=== PATIENT | female | born 1970 | race African-American/Black ===

== ENCOUNTER 2018-11-10 09:27 | Inpatient (IN) | payer OTHER ==
[~2018-11-10] VITALS: Ht 157.5 cm; Wt 106.1 kg
[~2018-11-10 09:27] MED LIST: ADVAIR; ALBUTEROL; AMIT-187; DIOVAN; FLONASE; GABAPENTIN; HCTZ; IBUPROFEN; LAMICTAL; MECLIZINE; METOPROLOL; PLAVIX; RANITIDINE; TOPAMAX
[2018-11-10] MEDS ORDERED: ASPIRIN 81MG TABLET PO ONE (10:00)
[2018-11-10] MEDS ORDERED: NITROGLYCERIN 0.4MG TABLET SL SL PRN (10:00)
[2018-11-10 10:10] LABS: BASOPHILS % 0.5 % (0.0-2.0); EOSINOPHILS % 1.5 % (0.0-5.0); HEMATOCRIT. 37.8 % (36.0-48.0); HEMOGLOBIN. 12.5 g/dL (12.0-16.0); MEAN CORPUSCULAR HEMOGLOBIN 29.9 pg (28.0-32.0); MEAN CORPUSCULAR VOLUME 90.1 fL (81.0-99.0); MEAN PLATELET VOLUME 8.3 fl (7.4-10.4); MONOCYTES % 5.4 % (2.0-8.0); NEUTROPHILS % 68.6 % (40.0-76.0); PLATELET 242 x1000/uL (130-400); RED BLOOD CELL COUNT 4.19 mill/uL (4.2-5.4); RED CELL DISTRIBUTION WIDTH 14.5 % (11.6-14.6)
[2018-11-10 10:16] LABS: CHLORIDE 108 mEq/L (98-107)
[2018-11-10 11:13] LABS: *AMPHETAMINES SCREEN URINE NEGATIVE (NEGATIVE); *BARBITURATES SCREEN URINE NEGATIVE (NEGATIVE); *BENZODIAZEPINES SCREEN URINE NEGATIVE (NEGATIVE); *COCAINE SCREEN URINE NEGATIVE (NEGATIVE)
[2018-11-10 11:14] LABS: METHADONE URINE SCREEN NEGATIVE (NEGATIVE); OPIATES URINE SCREEN NEGATIVE (NEGATIVE); PHENCYCLIDINE URINE SCREEN NEGATIVE (NEGATIVE)
[2018-11-10] MEDS ORDERED: LABETALOL HCL 20MG/4ML CARPUJECT IV ONE ×3 (11:15→12:30)
[2018-11-10 11:28] LABS: CANNABINOID URINE SCREEN PRESUMTIVE POSITIVE (NEGATIVE)
[2018-11-10] MEDS ORDERED: LABETALOL 5MG/ML SYR 20 MG/4 ML SYRINGE IV NR (11:30)
[2018-11-10] MEDS ORDERED: KETOROLAC 15MG/ML VIAL IV ONE (12:30)
[2018-11-10] MEDS ORDERED: LABETALOL 5MG/ML SYR 20 MG/4 ML SYRINGE IV ONE (15:15)
[2018-11-10] MEDS ORDERED: POTASSIUM CHLORIDE 20MEQ TABLET SR PO NR (15:30)
[2018-11-10] MEDS ORDERED: LOSARTAN POTASSIUM 100 MG TABLET PO NR (15:45)
[2018-11-10 16:14] LABS: HDL CHOLESTEROL 55 mg/dL (40-59); LDL CHOLESTEROL 73 mg/dL (5-100)
[2018-11-10] MEDS: CLONIDINE 0.1MG TABLET PO PRN (16:46)
[2018-11-10] MEDS: ACETAMINOPHEN 325MG TABLET PO PRN (16:47)
[2018-11-10] MEDS ORDERED: HYDRALAZINE 20MG/ML VIAL IV NR (19:30)
[2018-11-10] MEDS ORDERED: ZOLPIDEM TARTRATE 5MG TABLET PO PRN (21:00)
[2018-11-10] MEDS ORDERED: METOPROLOL TARTRATE 25MG TABLET PO NR (23:08)
[2018-11-10] MEDS: KETOROLAC 30MG/ML VIAL IV PRN (23:23)
[2018-11-11] VITALS (13 sets, daily range): BP systolic 135–167; BP diastolic 57–116
[2018-11-11] MEDS: AMLODIPINE 5MG TABLET PO SCH ×3 (00:39→21:44)
[2018-11-11] MEDS: ACETAMINOPHEN 325MG TABLET PO PRN ×2 (02:58→10:16)
[2018-11-11] MEDS: CLONIDINE 0.1MG TABLET PO PRN ×2 (04:41→19:01)
[2018-11-11 05:53] LABS: BASOPHILS % 0.5 % (0.0-2.0); EOSINOPHILS % 1.7 % (0.0-5.0); HEMATOCRIT. 38.7 % (36.0-48.0); HEMOGLOBIN. 12.8 g/dL (12.0-16.0); LYMPHOCYTES % 26.8 % (20.0-50.0); MEAN CORPUSCULAR HEMOGLOBIN 29.6 pg (28.0-32.0); MEAN CORPUSCULAR VOLUME 89.6 fL (81.0-99.0); MEAN PLATELET VOLUME 8.7 fl (7.4-10.4); MONOCYTES % 6.5 % (2.0-8.0); NEUTROPHILS % 64.5 % (40.0-76.0); PLATELET 217 x1000/uL (130-400); RED BLOOD CELL COUNT 4.32 mill/uL (4.2-5.4); RED CELL DISTRIBUTION WIDTH 14.4 % (11.6-14.6)
[2018-11-11 06:18] LABS: CHLORIDE 108 mEq/L (98-107)
[2018-11-11] MEDS: CLOPIDOGREL 75MG TABLET PO SCH ×2 (09:00→10:00)
[2018-11-11] MEDS ORDERED: METOPROLOL TARTRATE 25MG TABLET PO SCH (09:00)
[2018-11-11] MEDS: LOSARTAN POTASSIUM 100 MG TABLET PO SCH (09:01)
[2018-11-11] MEDS: HYDRALAZINE HCL 50MG TABLET PO SCH ×2 (10:00→21:44)
[2018-11-11] MEDS: METOPROLOL TARTRATE 25MG TABLET PO SCH ×2 (10:01→21:43)
[2018-11-11] MEDS ORDERED: SUMATRIPTAN SUCCINATE 6MG/0.5ML VIAL SUBCUT ONE (11:30)
[2018-11-11] MEDS ORDERED: DIPHENHYDRAMINE 50MG/ML VIAL IV SCH (11:30)
[2018-11-11] MEDS: HYDROCODONE/ACETAMINOPHEN 5/325MG TABLET PO PRN (17:13)
[2018-11-11] MEDS ORDERED: ONDANSETRON HCL 4MG/2ML INJ IV PRN (17:30)
[2018-11-12] VITALS (12 sets, daily range): BP systolic 125–154; BP diastolic 75–110
[2018-11-12] MEDS: KETOROLAC 30MG/ML VIAL IV PRN (00:42)
[2018-11-12] MEDS: HYDROCODONE/ACETAMINOPHEN 5/325MG TABLET PO PRN (08:13)
[2018-11-12] MEDS: METOPROLOL TARTRATE 25MG TABLET PO SCH (08:14)
[2018-11-12] MEDS: LOSARTAN POTASSIUM 100 MG TABLET PO SCH (08:14)
[2018-11-12] MEDS: AMLODIPINE 5MG TABLET PO SCH (08:14)
[2018-11-12] MEDS: HYDRALAZINE HCL 50MG TABLET PO SCH (08:14)
[2018-11-12] MEDS: CLOPIDOGREL 75MG TABLET PO SCH (08:26)
[2018-11-12] MEDS ORDERED: HYDR-4135 PO (12:21)
[2018-11-12] MEDS ORDERED: METO25TA6 PO (12:21)
[2018-11-12] MEDS ORDERED: AMLO5TAB88 PO (12:21)
[2018-11-12] MEDS ORDERED: LOSA100T3 PO (12:21)
[2018-11-12] MEDS ORDERED: POTASSIUM CHLORIDE 20MEQ TABLET SR PO NR (15:15)
[2018-11-12] MEDS ORDERED: TRIAMTERENE/HYDROCHLOROTHIAZID 75/50MG TABLET PO SCH (16:30)
== END 2018-11-12 15:34 | disposition home or self-care (01) | DRG 199 ==
LOC: ER 09:27 → 5EST 14:24 → EDBEDREQ 14:56 → ENRESERV 22:56
PROVIDERS: ADMIT Internal Medicine; ATTEND Internal Medicine
DX: I16.0 Hypertensive urgency (principal); I67.4 Hypertensive encephalopathy; E87.8 Other disorders of electrolyte and fluid balance, not elsewhere classified; I24.8 Other forms of acute ischemic heart disease; E44.1 Mild protein-calorie malnutrition; E66.01 Morbid (severe) obesity due to excess calories; I10 Essential (primary) hypertension; E87.6 Hypokalemia; G40.909 Epilepsy, unspecified, not intractable, without status epilepticus; F12.90 Cannabis use, unspecified, uncomplicated; M19.90 Unspecified osteoarthritis, unspecified site; Z82.3 Family history of stroke; Z82.49 Family history of ischemic heart disease and other diseases of the circulatory system; Z86.73 Personal history of transient ischemic attack (TIA), and cerebral infarction without residual deficits; Z88.0 Allergy status to penicillin; Z88.2 Allergy status to sulfonamides; Z88.9 Allergy status to unspecified drugs, medicaments and biological substances; Z90.710 Acquired absence of both cervix and uterus; Z71.3 Dietary counseling and surveillance; Z68.41 Body mass index [BMI] 40.0-44.9, adult
CPT/HCPCS: 36415; 70551; 71045; 80048; 80061; 80305; 81025; 83880; 84443; 84484; 93005; 93306; 93970; 96374; 96375; 96376; 99291; C1893; J0360; J1200; J1885; J2405; J3030; J3490; A4315